=== PATIENT | female | born 2000 | race Caucasian/White ===

== ENCOUNTER 2025-05-27 14:48 | Emergency (ER) | payer OTHER ==
[~2025-05-27] VITALS: Ht 172.7 cm; Wt 60.0 kg
[2025-05-27 14:57] VITALS: O2SAT 98
[2025-05-27] MEDS: KETOROLAC 30MG/ML VIAL IM ONE (16:30)
[2025-05-27] MEDS: ACETAMINOPHEN 325MG TABLET PO ONE (16:43)
[2025-05-27] MEDS ORDERED: ACET-2708 MT (17:37)
[2025-05-27] MEDS ORDERED: KETO10TA2 MT (17:37)
[2025-05-27 18:01] VITALS: BP 113/62; PULSE 63; RESP 14; TEMP 36.8; O2SAT 100
== END 2025-05-27 18:11 | disposition home or self-care (01) ==
LOC: ER 14:48
DX: G56.03 Carpal tunnel syndrome, bilateral upper limbs (principal)
CPT/HCPCS: 96372; 99283; J1885; Z7610